=== PATIENT | male | born 1995 | race Caucasian/White ===

== ENCOUNTER 2021-10-07 20:10 | Emergency (ER) | payer OTHER, SELFPAY ==
--- NOTE | ~2021-10-07 | XR_ITS ---
EXAMINATION: XR ANKLE, LEFT CLINICAL INFORMATION: Trauma COMPARISON: None TECHNIQUE: AP, lateral, and mortise views of the left ankle. FINDINGS: No acute fracture or dislocation. Ankle mortise is congruent and intact. Pronounced soft tissue swelling overlying the lateral malleolus and suspected small ankle joint effusion. Ankle and subtalar joint spaces are maintained. Small sclerotic bone islands noted in the talus and posterior calcaneus. XR/XR ankle LT min 3V IMPRESSION: 1. No fracture or dislocation identified. 2. Soft tissue swelling overlying the lateral malleolus and suspected small ankle joint effusion.
[2021-10-07 20:55] VITALS: BP 122/91; PULSE 95; RESP 16; TEMP 36.6; O2SAT 100; BMI 21.2
--- NOTE | 2021-10-08 01:11 | ED_ITS ---
HPI - Extremity Injury (Lower) General Chief Complaint: Extremity Injury, Lower Stated Complaint: left ankle pain Time Seen by Provider: 10/08/21 00:56 Source: patient Mode of arrival: ambulatory History of Present Illness HPI Narrative: 25-year-old male with presentation for left ankle injury while skateboarding, stated he rolled the left ankle and heard a pop with significant swelling afterwards and the inability to bear weight. Patient states that he has fractured that ankle previously he denies any weakness/numbness/tingling. Related Data Allergies Allergy/AdvReac Type Severity Reaction Status Date / Time No Known Allergies Allergy Verified 10/07/21 21:01 Review of Systems Review of Systems: Pertinent positives and negatives as stated in HPI 10 point review of systems is otherwise negative. [facility] Past Medical History Source: nursing notes reviewed Social History Social History Advance Directives: No Physical Exam Vital Signs: Vital Signs: Last Vital Signs Temp 97.8 F 10/07/21 20:55 Pulse 95 10/07/21 20:55 Resp 16 10/07/21 20:55 BP 122/91 H 10/07/21 20:55 Pulse Ox 100 10/07/21 20:55 O2 Del Method 10/07/21 20:55 BMI result Body Mass Index 21.2 VITAL SIGNS: Reviewed. GENERAL: Well developed, well nourished, in no acute distress. HEAD: Normocephalic/atraumatic EYES: PERRLA, EOMI EARS: Ext canals without abnormality OROPHARYNX: no oral lesions noted, posterior pharynx clear LUNGS: Normal breath sounds. CARDIOVASCULAR: Regular rate and rhythm without noted murmurs ABDOMEN: Soft, non-tender, non-distended with bowel sounds. MUSCULOSKELETAL: No tenderness, deformities, or effusions noted on gross inspection. EXTREMITIES: No cyanosis, clubbing or edema; LEFT ANKLE: There is noted swelling to the lateral malleolus with minimal swelling at the medial malleolus, sensation intact, DP/PT are palpable with capillary refill less than 3 seconds. There is no midfoot tenderness but tenderness to palpation at the lateral malleolus.. SKIN: Inspection of the skin reveals no rashes NEUROLOGIC: Alert and oriented x 4. Strength and sensation to light touch were grossly intact x 4. Course Course Course Narrative: 25-year-old male with history and clinical presentation consistent with fracture versus dislocation versus sprain. On review of all investigations x-ray is negative for acute fracture or dislocation. Og wrap was placed on left ankle, patient declines crutches at this time stating that he has some at home and he was otherwise provided with combination analgesics. Discharge Plan Discharge Clinical Impression: Ankle sprain and strain Patient Disposition: Home, Self-Care Instructions: Ankle Sprain (ED), R.I.C.E. Treatment (ED) Additional Instructions: 1. Recommend Tylenol/ibuprofen as needed for pain control. 2. Keep Og wrap in place to help reduce swelling, elevate when possible and apply ice to unexposed skin, 10-15 minutes, 3 to 4 times a day. 3. Use crutches for additional help for the 1st week. 4. Follow-up with your primary care provider in 2-3 days for re-evaluation. Return to the ER for worsening symptoms.
[2021-10-08] MEDS: Acetaminophen 325 MG TABLET 975 MG PO (01:49)
[2021-10-08] MEDS: Ibuprofen 400 MG TABLET PO (01:49)
[2021-10-08 01:59] VITALS: RESP 16
--- NOTE | 2021-10-08 02:00 | PC.NURSE ---
pt a&o, no sob or chest pain. bereket wrap applied to ankle . pt refusing crutches has them at home. positive cms and pedal pulses . reviewed discharge instruction for pt, pt verbalized understanding. discharged home.
== END 2021-10-08 02:03 | disposition home or self-care (01) ==
PROVIDERS: Emergency Provider Student in an Organized Health Care Education/Training Program
DX: S93.402A Sprain of unspecified ligament of left ankle, initial encounter (principal); S96.912A Strain of unspecified muscle and tendon at ankle and foot level, left foot, initial encounter; X50.1XXA Overexertion from prolonged static or awkward postures, initial encounter; Y93.51 Activity, roller skating (inline) and skateboarding; Y92.414 Local residential or business street as the place of occurrence of the external cause; Y99.9 Unspecified external cause status
CPT/HCPCS: 73610; 99283; 99284